=== PATIENT | female | born 1960 | race Caucasian/White ===

== ENCOUNTER 2023-11-27 06:00 | Outpatient (RCR) | payer OTHER, SELFPAY | END 2023-12-06 23:59 | disposition home or self-care (01) | LOC: GPT 06:00 | PROVIDERS: Visit Provider Nurse Practitioner | DX: M54.2 Cervicalgia (principal) | CPT/HCPCS: 97110; 97140; 97162 ==

== ENCOUNTER 2023-12-07 06:00 | Outpatient (RCR) | payer OTHER, SELFPAY | END 2024-01-05 23:59 | disposition home or self-care (01) | LOC: GPT 06:00 | PROVIDERS: Visit Provider Nurse Practitioner | DX: M54.2 Cervicalgia (principal) | CPT/HCPCS: 97110; 97140; 97530 ==

== ENCOUNTER 2024-01-06 06:00 | Outpatient (RCR) | payer OTHER, SELFPAY | END 2024-02-05 23:59 | disposition home or self-care (01) | LOC: GPT 06:00 | PROVIDERS: Visit Provider Nurse Practitioner | DX: M54.2 Cervicalgia (principal) | CPT/HCPCS: 97110; 97140 ==

== ENCOUNTER → 2024-02-04 09:30 | Outpatient (BNVA) | payer OTHER, SELFPAY | PROVIDERS: PCP Family Medicine; Visit Provider Family Medicine | DX: E87.6 Hypokalemia (principal); I50.9 Heart failure, unspecified; Z76.89 Persons encountering health services in other specified circumstances; G62.9 Polyneuropathy, unspecified | CPT/HCPCS: 80048 ==

== ENCOUNTER 2024-04-12 14:29 | Outpatient (CLI) | payer OTHER, SELFPAY ==
--- NOTE | 2024-04-12 15:00 | MM_ITS ---
WS: [id number] BILATERAL 3D TOMOSYNTHESIS DIGITAL SCREENING MAMMOGRAPHY WITH CAD CLINICAL INFORMATION: Screening HISTORY: Screening mammogram. No current complaints. COMPARISON: New baseline TECHNIQUE: Bilateral CC and MLO views. FINDINGS: Scattered fibroglandular densities bilaterally. Dense breast tissue upper outer quadrant LEFT breast. Recommend ultrasound upper outer LEFT breast. A few axillary lymph nodes with fatty monty. Unremarkab le RIGHT breast. MM/[place] [id number] IMPRESSION: BI-RADS: 0-Incomplete: Need additional imaging evaluation FOLLOW UP: Need Additional Imaging Recommend ultrasound upper outer LEFT breast.
== END 2024-04-12 14:30 | disposition home or self-care (01) ==
LOC: RAD 14:30
PROVIDERS: PCP Family Medicine; Visit Provider Family Medicine
DX: Z12.31 Encounter for screening mammogram for malignant neoplasm of breast (principal); R92.323 Mammographic fibroglandular density, bilateral breasts
CPT/HCPCS: 77063; 77067

== ENCOUNTER 2024-04-26 16:29 | Emergency (ER) | payer OTHER, SELFPAY ==
--- NOTE | 2024-04-26 16:34 | USR_ITS ---
PROCEDURE INFORMATION: Exam: US Duplex Right Lower Extremity Veins, Limited Exam date and time: 04/26/2024 4:42 PM Age: 63 years old Clinical indication: Pain; Leg, lower; Right; Additional info: Leg pain TECHNIQUE: Imaging protocol: Real-time duplex ultrasound of the right extremity with 2-D bhatt scale, color Doppler flow and spectral waveform analysis including responses to compression and other maneuvers (when performed) with image documentation. Limited exam was focused on the right lower extremity veins. COMPARISON: No relevant prior studies available. FINDINGS: Right deep veins: The common femoral, femoral, proximal profunda femoral and popliteal veins are patent without evidence of thrombus and demonstrate normal waveforms. Visualized deep calf veins are patent. Superficial veins: Saphenofemoral junction is patent without thrombus. No evidence of thrombophlebitis. Soft tissues: No evidence of fluid collection. US/[place] [id number] IMPRESSION: 1. No sonographic evidence of deep venous thrombosis in the right lower extremity.
[2024-04-26 16:45] VITALS: BP 128/74; PULSE 74; RESP 16; TEMP 36.7; O2SAT 96; BMI 33.0
--- NOTE | 2024-04-26 16:57 | XRR_ITS ---
PROCEDURE INFORMATION: Exam: XR Right Tibia and Fibula Exam date and time: 04/26/2024 5:10 PM Age: 63 years old Clinical indication: Swelling, leg or foot; Patient HX: Rle swelling no trauma; Additional info: Injury TECHNIQUE: Imaging protocol: Radiologic exam of the right tibia and fibula. Views: 2 views. COMPARISON: [place] [id number] 04/26/2024 4:42 PM FINDINGS: Bones/joints: Moderate medial femorotibial osteoarthritis. No evidence of acute fracture or subluxation. Tibia and fibula are intact. Soft tissues: There is soft tissue edema. No radiopaque foreign body. There are superficial venous varicosities laterally. XR/XR tibia fibula RT 2V [id number] IMPRESSION: 1. Tibia and fibula are intact. If there is concern for muscle or tendon pathology, follow-up outpatient MRI may be helpful.
--- NOTE | 2024-04-26 17:00 | W.ED.EXTPRO ---
HPI - Extremity Problem General: Chief complaint: Extremity Injury, Lower Stated complaint: [facility] sent-possible blood clot in r-leg Time Seen by Provider: 04/26/24 16:35 Source: patient Mode of arrival: ambulatory Limitations: no limitations History of Present Illness: 63-year-old female states she been having right calf pain and over the last day states her calf feels swollen is worse with palpation and movement. She denies any injuries denies any fever she has had no redness. She had seen her PCP today who had sent her here to rule out a DVT. Associated symptoms: Deny chest pain, fever(s) or rash Related Data Home Medications Medication Instructions Recorded Confirmed ergocalciferol (vitamin D2) 50,000 unit PO .once weekly 02/04/24 04/26/24 unit tablet Previous Rx's Medication Instructions Recorded furosemide 20 mg tablet 40 mg (2 x 20 mg) PO BID #60 tabs 02/04/24 potassium chloride 20 mEq 20 meq PO BID #60 tabs 02/04/24 tablet,extended release(part/cryst) (Klor-Con M) gabapentin 300 mg capsule 300 mg PO DAILY #90 caps 03/08/24 naproxen 500 mg tablet (Naprosyn) 500 mg PO BID PRN pain #20 tabs 04/26/24 Allergies Allergy/AdvReac Type Severity Reaction Status Date / Time No Known Allergies Allergy Unverified 02/04/24 08:29 Review of Systems Const: Denies: fever(s), chills, body aches or change in appetite ENMT: Denies: throat pain or dental pain Card: Denies: chest pain Resp: Denies: dyspnea GI: Denies: abdominal pain, nausea, vomiting or diarrhea Musc: Reports: extremity pain; Denies: neck pain or back pain Skin/Breast: Denies: rash Neuro: Denies: headache(s) PFSH ED PFSH: Family History Father Stroke Other Heart disease Social History Smoking and tobacco/nicotine status: never used tobacco/nicotine Second hand smoke exposure: Yes Alcohol intake: never Substance/Drug Use: never Adopted: No Caregiver/support person: No Lives independently: Yes Household members: spouse Female Reproductive History: Spontaneous abortions: No Physical Exam Const: COMMON NORMALS: no acute distress, patient oriented x3 and healthy appearing HENMT: COMMON NORMALS: normocephalic and atraumatic HEAD & SCALP: normocephalic and atraumatic Neck/C-Spine: COMMON NORMALS: full ROM and supple Chest: COMMONS NORMALS: normal inspection of the chest Resp: COMMON NORMALS: normal respiratory effort Cardio: COMMON NORMALS: regular rate, regular rhythm and No murmurs present (Cardio) RATE: regular rate RHYTHM: regular rhythm Extremity: COMMON NORMALS: normal to inspection and full ROM NARRATIVE EXTREMITY EXAM: No erythema noted distal pulses are palpable she has some tenderness of her calf with no obvious deformities compartments are soft Neuro: COMMON NORMALS: patient oriented x3, moves all extremities and no focal motor deficits Psych: COMMON NORMALS: mental status grossly normal, Normal thought process present and cooperative THOUGHT PROCESS: Normal thought process present Skin: COMMON NORMALS: no rashes or lesions noted and no wounds GENERAL SKIN EXAM: no rashes or lesions noted Course Vital Signs: Vital signs: Vital Signs Temperature 98.0 F 04/26/24 16:45 Pulse Rate 74 04/26/24 16:45 Respiratory Rate 16 04/26/24 16:45 Blood Pressure 128/74 04/26/24 16:45 Pulse Oximetry 96 04/26/24 16:45 Oxygen Delivery Me thod Room Air 04/26/24 16:45 MDM - Extremity (Nontraumatic) Medical Decision Making Patient presents for leg pain is likely muscular in origin he has a distal pulses intact no sign of ischemia no signs of any infection x-ray ultrasound normal she stable for discharge follow-up with PCP return if worsening Medical Records I reviewed the patient's medical records. Lab Data Radiology Impressions Venous Duplex 04/26/24 16:34 IMPRESSION: 1. No sonographic evidence of deep venous thrombosis in the right lower extremity. Tibia/Fibula X-Ray 04/26/24 16:57 IMPRESSION: 1. Tibia and fibula are intact. If there is concern for muscle or tendon pathology, follow-up outpatient MRI may be helpful. All radiology interpretation(s) finalized by discharge Discharge Plan Discharge Patient Disposition: Home Clinical Impression: Leg pain, right Condition: Stable Prescriptions: New Naprosyn 500 mg tablet 500 mg PO BID PRN (Reason: pain) Qty: 20 0RF No Action ergocalciferol (vitamin D2) 50,000 unit tablet PO .once weekly furosemide 20 mg tablet 40 mg PO BID Qty: 60 5RF potassium chloride [Klor-Con M20] 20 mEq tablet,ER particles/crystals 20 meq PO BID Qty: 60 5RF gabapentin 300 mg capsule 300 mg PO DAILY Qty: 90 5RF Discharge Orders: Discharge ED (Routine); Ordered 04/26/24 Ordered By: Kimberly Nascimento Referrals: Zak Bustillo DO [Primary Care Provider] - 4-7 days Discharge Diet: Advance as tolerated Discharge Activity: Resume usual activity Patient Instructions: Leg Pain (ED) Coding 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
[2024-04-26] MEDS: HYDROcodone-acetaminophen 5-325 mg Tablet 1 TAB PO (17:12)
[2024-04-26 18:26] VITALS: PULSE 81; O2SAT 99
== END 2024-04-26 18:27 | disposition home or self-care (01) ==
PROVIDERS: Emergency Provider Emergency Medicine; PCP Family Medicine
DX: M79.604 Pain in right leg (principal)
CPT/HCPCS: 73590; 93971; 99284

== ENCOUNTER 2024-05-03 13:10 | Outpatient (CLI) | payer OTHER, SELFPAY ==
--- NOTE | 2024-05-03 14:45 | US_ITS ---
WS: [id number] ULTRASOUND BREAST LEFT TECHNIQUE: Ultrasound left breast focused area of concern. CLINICAL INFORMATION: abnormal mammo COMPARISON: Screening mammogram 04/12/2024 FINDINGS: Ultrasound LEFT breast at the 1 o'clock position 5 cm from the nipple. At the 1 o'clock position 5 cm from the nipple is a normal-appearing lymph node with persistent fatty hilum measuring 8 x 12 mm. This has a benign appearance. No other suspicious findings. US/US breast LT limited* [id number] IMPRESSION: BI-RADS 2 benign Recommend return to annual screening mammography.
== END 2024-05-03 13:11 | disposition home or self-care (01) ==
LOC: RAD 13:11
PROVIDERS: PCP Family Medicine; Visit Provider Family Medicine
DX: R92.8 Other abnormal and inconclusive findings on diagnostic imaging of breast (principal)
CPT/HCPCS: 76642

== ENCOUNTER → 2024-05-04 12:57 | Outpatient (BNVA) | payer OTHER, SELFPAY | PROVIDERS: PCP Family Medicine; Visit Provider Internal Medicine | DX: R07.9 Chest pain, unspecified (principal); R06.02 Shortness of breath; R00.2 Palpitations; I49.9 Cardiac arrhythmia, unspecified; R06.09 Other forms of dyspnea | CPT/HCPCS: 93005 ==

== ENCOUNTER 2024-06-10 06:01 | Outpatient (CLI) | payer OTHER, SELFPAY ==
--- NOTE | 2024-06-10 06:30 | USCV_ITS ---
Tracy Javed Age: 63 Gender: F : 1960 Exam Date: 06/10/2024 06:23 Ordering Phys: Tenzin Joshi M.D ([email or web address]) Technologist: Mark Anthony Duff Exam Location: [place] Indication: chest pain BP: 130 / 88 HR: 60 Rhythm: Sinus Technical Quality: Adequate MEASUREMENTS (Male / Female) Normal Values 2D ECHO LV Diastolic Diameter PLAX 4.9 cm 4.2 - 5.9 / 3.9 - 5.3 cm IVS Diastolic Thickness 0.7 cm 0.6 - 1.0 / 0.6 - 0.9 cm IVS Systolic Thickness 1.3 cm LVPW Diastolic Thickness 0.9 cm 0.6 - 1.0 / 0.6 - 0.9 cm LVPW Systolic Thickness 1.6 cm LVOT Diameter 2.0 cm LV Ejection Fraction 2D Teich 63.1 % LV Ejection Fraction MOD 4C 62.5 % LV Ejection Fraction MOD 2C 59.9 % LV Ejection Fraction 2C AL 60.5 % LA Diameter 3.3 cm RA Systolic Volume 4C AL 33.0 ml RA Systolic Volume 4C MOD 33.9 ml LA Sys Volume AL 55.7 cm cubed LA Sys Volume Index AL 29.1 cm cubed/m squared Aorta at Sinotubular Diameter 2.1 cm IVC Diameter 1.6 cm M-MODE LA Ao Ratio MM 1.3 AV Cusp Separation MM 1.5 cm DOPPLER AV Peak Velocity 120.0 cm/s LVOT Peak Velocity 93.0 cm/s AV Area Cont Eq vti 2.5 cm squared AV Area Cont Eq pk 2.5 cm squared MV Peak Velocity 360.3 cm/s MV Area PHT 5.9 cm squared Mitral E to A Ratio 1.2 TV Peak Velocity 324.0 cm/s TR Peak Velocity 335.0 cm/s TR Peak Gradient 44.9 mmHg TR Mean Velocity 251.0 cm/s TR Mean Gradient 27.0 mmHg TR Velocity Time Integral 84.7 cm PV Peak Velocity 79.3 cm/s RV Ejection Time 0.3 s FINDINGS Left Ventricle Normal left ventricular cavity size. Normal left ventricular systolic function. Left ventricular ejection fraction is estimated at 60 %. Grade II/IV diastolic dysfunction, moderately elevated filling pressures. Right Ventricle The right ventricle is normal in size and function. Right Atrium The right atrium is normal in size. Left Atrium Moderately increased left atrial size. Mitral Valve Thickened mitral valve. No mitral valve stenosis. Mild mitral valve regurgitation. Aortic Valve Structurally normal aortic valve without significant sclerosis or stenosis. There is no aortic regurgitation. Tricuspid Valve Trace tricuspid valve regurgitation. Pulmonic Valve Structurally normal pulmonic valve without significant stenosis. There is no pulmonic regurgitation. Pericardium Normal pericardium without effusion. Aorta Normal ascending aorta dimension. IVC The inferior vena cava appears normal. CONCLUSIONS Normal left ventricular cavity size. Normal left ventricular systolic function. Left ventricular ejection fraction is estimated at 60 %. Grade II/IV diastolic dysfunction, moderately elevated filling pressures. Moderately increased left atrial size. Thickened mitral valve. No mitral valve stenosis. Mild mitral valve regurgitation. There is no pericardial effusion. Right atrial pressure is around 5 mm of mercury. Kimani Reeves MD (Electronically Signed) Final Date: 11 June 2024 14:52 S
== END 2024-06-10 06:02 | disposition home or self-care (01) ==
LOC: RAD 06:02
PROVIDERS: PCP Family Medicine; Visit Provider Internal Medicine
DX: I50.30 Unspecified diastolic (congestive) heart failure (principal); I51.7 Cardiomegaly; I34.81 Nonrheumatic mitral (valve) annulus calcification
CPT/HCPCS: 93306

== ENCOUNTER → 2024-06-27 09:56 | Outpatient (BNVA) | payer OTHER, SELFPAY | PROVIDERS: PCP Family Medicine; Visit Provider Family Medicine | DX: R30.0 Dysuria (principal) | CPT/HCPCS: 80048; 81000 ==

== ENCOUNTER 2024-10-18 17:55 | Emergency (ER) | payer OTHER, SELFPAY ==
[2024-10-18 18:12] VITALS: BP 141/89; PULSE 82; TEMP 36.7; O2SAT 96; BMI 33.6
--- NOTE | 2024-10-18 18:27 | USR_ITS ---
PROCEDURE INFORMATION: Exam: US Duplex Right Lower Extremity Veins, Limited Exam date and time: 10/18/2024 6:44 PM Age: 63 years old Clinical indication: Edema, localized; Lower extremity, right; Additional info: Leg swelling TECHNIQUE: Imaging protocol: Real-time duplex ultrasound of the right extremity with 2-D bhatt scale, color Doppler flow and spectral waveform analysis including responses to compression and other maneuvers (when performed) with image documentation. Limited exam was focused on the right lower extremity veins. COMPARISON: CR XR tibia fibula RT 2V [id number] 04/26/2024 5:10 PM FINDINGS: Right deep veins: Unremarkable. The common femoral, femoral, proximal profunda femoral and popliteal veins are patent without thrombus. Normal Doppler waveforms. Normal compressibility and/or augmentation response. Superficial veins: Greater saphenous vein at the saphenofemoral junction is patent without thrombus. Soft tissues: Unremarkable. US/[place] [id number] IMPRESSION: No evidence of deep vein thrombosis.
--- NOTE | 2024-10-18 20:55 | W.ED.EXTPRO ---
HPI - Extremity Problem General: Chief complaint: Extremity Problem,Nontraumatic Stated complaint: right leg swollen Time Seen by Provider: 10/18/24 19:47 Source: patient Mode of arrival: ambulatory Limitations: no limitations History of Present Illness: Patient is a 63-year-old female who presents the emergency department complaining of right lower extremity pain for the past few days. She states this is atraumatic, began suddenly and it radiates originating from the right knee up the posterior right leg towards her back. She does report a history of arthritis, states this does not feel similar. She also is currently on a blood thinner. She does not wear compression stockings, states that she took naproxen for the pain but this was causing nosebleeds so she stopped. She has still been able to walk, states this causes pain. She notes that her right knee has been swelling as well. She denies any fever, chest pain, shortness of breath, nausea/vomiting/diarrhea, or other systemic signs of illness at this time. Denies any calf swelling or calf tenderness. Denies history of sciatica. MD Complaint: extremity pain Onset (ago): day(s) (3) Pain Consistency: constant Location: right and lower extremity Radiation: proximal Exacerbating factors: range of motion and weight bearing Associated symptoms: Deny chest pain, fever(s) or rash Related Data Previous Rx's ?Medication ?Instructions ?Recorded gabapentin 100 mg capsule See Rx Instructions .Route 05/31/24 .COMPLEX #90 caps metoprolol succinate 25 mg 25 mg PO DAILY #90 tabs 08/17/24 tablet,extended release 24 hr rivaroxaban 20 mg tablet (Xarelto) 20 mg PO DAILY #90 tabs 08/17/24 furosemide 20 mg tablet See Rx Instructions .Route 09/02/24 .COMPLEX #60 tabs potassium chloride 20 mEq See Rx Instructions .Route 09/02/24 tablet,extended release(part/cryst) .COMPLEX #60 tabs naproxen 500 mg tablet See Rx Instructions .Route 09/30/24 .COMPLEX #60 tabs ergocalciferol (vitamin D2) 1,250 1,250 mcg PO .weekly #20 caps 10/03/24 mcg (50,000 unit) capsule Allergies Allergy/AdvReac Type Severity Reaction Status Date / Time latex Allergy Unknown Verified 10/18/24 18:17 Review of Systems General: Reports: 10 or more systems reviewed and unremarkable except in HPI and below Const: Denies: fever(s) or chills Card: Denies: chest pain Resp: Denies: dyspnea or productive cough GI: Denies: abdominal pain, nausea, vomiting or diarrhea : Denies: flank pain Musc: Reports: back pain, extremity pain, joint pain and joint swelling; Denies: neck pain, extremity swelling, joint redness, joint warmth, limited range of motion or muscle weakness Skin/Breast: Denies: rash Neuro: Denies: headache(s), numbness in extremities or weakness in extremities PFSH ED PFSH: Medical History Hyperlipemia Heart murmur Family History Father Stroke CAD (coronary artery disease) Mother CAD (coronary artery disease) Other Heart disease Social History Smoking and tobacco/nicotine status: never used tobacco/nicotine Second hand smoke exposure: Yes Alcohol intake: never Substance/Drug Use: never Adopted: No Caregiver/support person: No Lives independently: Yes Household members: spouse Female Reproductive History: Spontaneous abortions: No Physical Exam Const: COMMON NORMALS: no acute distress, patient oriented x3, no limitations, healthy appearing, alert and well nourished HENMT: COMMON NORMALS: normocephalic and atraumatic HEAD & SCALP: normocephalic and atraumatic Neck/C-Spine: COMMON NORMALS: full ROM, supple and no meningeal signs Resp: COMMON NORMALS: normal respiratory effort, No use of accessory muscles and clear to auscultation bilaterally AUSCULTATION: clear to auscultation bilaterally Cardio: COMMON NORMALS: regular rate and regular rhythm RATE: regular rate RHYTHM: regular rhythm HEART SOUNDS: Murmur heart sound present Extremity: COMMON NORMALS: full ROM, capillary refill normal, no joint enlargement and no clubbing, cyanosis or edema NARRATIVE EXTREMITY EXAM: There are numerous varicosities to bilateral lower extremity. DP/PT pulses are 2+ bilaterally. No calf tenderness, redness, or swelling. Right knee joints are symmetrical, there is no obvious swelling to the right knee. Tenderness to palpation to the right popliteal space without palpable cord, this is reproducible up the posterior aspect of the right leg towards the back. She does endorse back pain with right straight leg raise. Neuro: COMMON NORMALS: patient oriented x3, moves all extremities, no focal motor deficits and no sensory deficits noted SENSORIUM/ORIENTATION: Yes alert MENINGEAL SIGNS: Yes no meningeal signs Skin: COMMON NORMALS: no rashes or lesions noted GENERAL SKIN EXAM: no rashes or lesions noted Course Vital Signs: Vital signs: Vital Signs Temperature 98.0 F 10/18/24 18:12 Pulse Rate 82 10/18/24 18:12 Blood Pressure 141/89 10/18/24 18:12 Pulse Oximetry 96 10/18/24 18:12 Oxygen Delivery Me thod Room Air 10/18/24 18:12 MDM - Extremity (Nontraumatic) Medical Decision Making Patient DVT negative here, she has had atraumatic pain for the past few days and is on a blood thinner currently. She does not report a history of sciatica, though this remains my differential along with arthritis of the right knee, IT band syndrome, or superficial thrombophlebitis. Informed her to start wearing compression stockings, she cannot take ibuprofen or NSAIDs due to the blood thinner and increase in bleeding so encouraged her to do Tylenol. Encouraged her to follow-up closely with primary care for reevaluation and to make sure that she is getting better after rest and recovery. She does not have any systemic signs of illness and knee did not appear to be septic in any way, and informed her to return with any worsening whatsoever. She verbalized understanding, discharge at this time. Lab Data Radiology Impressions Venous Duplex 10/18/24 18:27 IMPRESSION: No evidence of deep vein thrombosis. All radiology interpretation(s) finalized by discharge Discharge Plan Discharge Patient Disposition: Home Clinical Impression: Superficial thrombophlebitis Condition: Stable Prescriptions: No Action Xarelto 20 mg tablet 20 mg PO DAILY Qty: 90 3RF Rx Instructions: must administer with evening meal metoprolol succinate 25 mg tablet extended release 24 hr 25 mg PO DAILY Qty: 90 3RF gabapentin 100 mg capsule See Rx Instructions .ROUTE .COMPLEX Qty: 90 0RF Dose Instruction: TAKE ONE CAPSULE BY MOUTH ONCE DAILY AT BEDTIME FOR FOUR DAYS THEN INCREASE TO TWO CAPSULES AT BEDTIME FOR FOUR DAYS THEN TAKE THREE CAPSULES ONCE DAILY AT BEDTIME Rx Instructions: TAKE ONE CAPSULE BY MOUTH ONCE DAILY AT BEDTIME FOR FOUR DAYS THEN INCREASE TO TWO CAPSULES AT BEDTIME FOR FOUR DAYS THEN TAKE THREE CAPSULES ONCE DAILY AT BEDTIME potassium chloride 20 mEq tablet,ER particles/crystals See Rx Instructions .ROUTE .COMPLEX Qty: 60 5RF Dose Instruction: TAKE ONE TABLET BY MOUTH TWICE DAILY Rx Instructions: TAKE ONE TABLET BY MOUTH TWICE DAILY furosemide 20 mg tablet See Rx Instructions .ROUTE .COMPLEX Qty: 60 5RF Dose Instruction: TAKE TWO TABLETS BY MOUTH TWICE DAILY Rx Instructions: TAKE TWO TABLETS BY MOUTH TWICE DAILY naproxen 500 mg tablet See Rx Instructions .ROUTE .COMPLEX Qty: 60 2RF Dose Instruction: TAKE ONE TABLET BY MOUTH TWICE DAILY NEEDED FOR PAIN Rx Instructions: TAKE ONE TABLET BY MOUTH TWICE DAILY NEEDED FOR PAIN ergocalciferol (vitamin D2) 1,250 mcg (50,000 unit) capsule 1,250 mcg PO .weekly Qty: 20 0RF Discharge Orders: Discharge ED (Routine); Ordered 10/18/24 Ordered By: Salazar Penny Referrals: Zak Bustillo DO [Primary Care Provider] - Patient Instructions: Superficial Thrombophlebitis (ED) Activity Restrictions/Additional Instructions: Compression stockings. Take Tylenol for pain. Elevate the extremity, rest and recovery. Please follow-up closely with primary care for further evaluation. Please return with any fever, chest pain or shortness of breath, or other systemic signs of illness. 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
[2024-10-18 21:10] VITALS: BP 146/82; PULSE 79; O2SAT 95
== END 2024-10-18 21:12 | disposition home or self-care (01) ==
PROVIDERS: Emergency Provider Physician Assistant; PCP Family Medicine
DX: I80.01 Phlebitis and thrombophlebitis of superficial vessels of right lower extremity (principal); E78.5 Hyperlipidemia, unspecified
CPT/HCPCS: 93971; 99284

== ENCOUNTER → 2024-10-31 08:30 | Outpatient (BNVA) | payer OTHER, SELFPAY | PROVIDERS: PCP Family Medicine; Visit Provider Family Medicine | DX: R79.89 Other specified abnormal findings of blood chemistry (principal); I50.9 Heart failure, unspecified; I48.4 Atypical atrial flutter; Z79.01 Long term (current) use of anticoagulants; E87.6 Hypokalemia; R30.0 Dysuria; E55.9 Vitamin D deficiency, unspecified | CPT/HCPCS: 80053; 81000; 82306; 82607; 82728; 83550; 84443; 85025; 87086 ==

== ENCOUNTER → 2025-01-04 08:50 | Outpatient (BNVA) | payer OTHER, SELFPAY | PROVIDERS: PCP Family Medicine; Visit Provider Family Medicine | DX: E55.9 Vitamin D deficiency, unspecified (principal); E11.9 Type 2 diabetes mellitus without complications; I50.9 Heart failure, unspecified; Z79.01 Long term (current) use of anticoagulants; R79.89 Other specified abnormal findings of blood chemistry; E87.6 Hypokalemia | CPT/HCPCS: 80048; 80061; 82306; 82607; 83036; 84443; 85025 ==

== ENCOUNTER 2025-02-07 09:06 | Day surgery (SDC) | payer OTHER, SELFPAY ==
[2025-02-07 09:45] VITALS: BP 128/77; PULSE 75; RESP 18; TEMP 36.1; O2SAT 91
[2025-02-07] MEDS: sodium chloride 0.9% 1,000 ML 15 ML IV (09:49)
--- NOTE | 2025-02-07 11:05 | ANES.PREANE2 ---
Pre-Anesthetic Assessment Height/Weight: Height 1.57 m Weight 86.183 kg Temp Pulse Resp BP Pulse Ox O2 Del Method 97.0 F L 75 18 128/77 91 Room Air 02/07/25 09:45 02/07/25 09:45 02/07/25 09:45 02/07/25 09:45 02/07/25 09:45 02/07/25 09:45 Preop Diagnosis: screening Operation Date: 02/07/25 11:30 Proposed Procedures p Colonoscopy 53618 G0121 Z12.11(Not Applicable) - Darion Reyes MD Familial anesthetic complications: none Was Beta Huy taken within 24 hours: N/A Was Clonidine taken within 24 hours: N/A Last intake: Intake Last Liquid Date 02/06/25 Last Liquid Time 23:00 Last Solid Date 02/05/25 Last Solid Time 12:00 Last Intake: 23:00 Social No alcohol and No tobacco Exam alert and oriented x 3 Airway Submandibular: within normal limits Cervical ROM: within normal limits Mallampati: Class II Dentition: false History/ROS No significant history except as noted Pulmonary None reported CV/HEM Atrial Fibrillation and Congestive Heart Failure None reported Hepatic None reported GI None reported Metabolic Diabetes Mellitus Musc/skel Osteoarthritis/DJD Neuropsych None reported Anesthetic Plan ASA status: 3 Anesthesia: Anesthesia Evaluation and MAC Risk of > 500 ml blood loss (7ml/kg in children): No Medications/Allergies Home Medications ?Medication ?Instructions ?Recorded ?Confirmed ?Last Taken ?Type metoprolol succinate 25 mg 25 mg PO DAILY #90 tabs 08/17/24 02/02/25 02/06/25 Rx tablet,extended release 24 hr rivaroxaban 20 mg tablet (Xarelto) 20 mg PO DAILY #90 tabs 08/17/24 02/02/25 02/02/25 Rx ergocalciferol (vitamin D2) 1,250 1,250 mcg PO .weekly #20 caps 10/03/24 02/02/25 02/06/25 Rx mcg (50,000 unit) capsule gabapentin 100 mg capsule 100 mg PO DAILY #90 caps 10/31/24 02/02/25 02/06/25 Rx furosemide 20 mg tablet 20 mg PO BID 02/02/25 02/02/25 02/06/25 History potassium chloride 20 mEq 20 meq PO BID 02/02/25 02/02/25 02/06/25 History tablet,extended release(part/cryst) Allergies Allergy/AdvReac Type Severity Reaction Status Date / Time latex Allergy Unknown Verified 02/02/25 08:40 Current Medications Generic Name Dose Route Start Last Admin Trade Name Freq PRN Reason Stop Dose Admin Sodium Chloride 1,000 mls @ 15 mls/hr 02/07/25 09:17 02/07/25 09:49 Sodium Chloride 0.9% IV 02/08/25 09:16 15 mls/hr .Q24H PRN Administration COLONOSCOPY FLUIDS PFSH Anesthesia Medical History Hyperlipemia Heart murmur Family History Father Stroke CAD (coronary artery disease) Mother CAD (coronary artery disease) Other Heart disease Social History Smoking and tobacco/nicotine status: never used tobacco/nicotine Second hand smoke exposure: Yes Alcohol intake: never Substance/Drug Use: never Adopted: No Caregiver/support person: No Lives independently: Yes Household members: spouse Female Reproductive History Spontaneous abortions: No Data Anesthesia Cardiac Studies: Echocardiogram 06/10/24 Cardiac Event Monitor 05/04/24
--- NOTE | 2025-02-07 11:15 | W.PM.OPSUD ---
Surgery/Procedure H&P Update DATE OF PROCEDURE: February 07, 2025 DATE H&P PERFORMED: 01/12/25 H&P UPDATE INFORMATION: I have reviewed H&P completed within last 30 days, I have examined patient prior to procedure and No changes to prior documentation PREOP DIAGNOSIS: screening PLANNED PROCEDURE: Operation Date: 02/07/25 11:30 Proposed Procedures p Colonoscopy [id number] G0121 Z12.11(Not Applicable) - Darion Reyes MD
[2025-02-07 11:38] VITALS: BP 113/69; PULSE 64; RESP 18; TEMP 36.3; O2SAT 93
[2025-02-07 11:57] VITALS: BP 120/66; PULSE 65; RESP 16; O2SAT 95
--- NOTE | 2025-02-07 12:04 | ANE.PACU2 ---
Inpatient post-anesthesia follow up: Airway intact: Yes Vital signs: Temperature 97.3 F Pulse Rate 65 Respiratory Rate 16 Blood Pressure 120/66 Pulse Oximetry 95 Oxygen Delivery Me thod Room Air Oxygen Flow Rate Fraction of Inspir ed Oxygen Hydration adequate: Yes Nausea and vomiting: No Pain level: 1 Mental status: Baseline
== END 2025-02-07 12:04 | disposition home or self-care (01) ==
PROVIDERS: PCP Family Medicine; Visit Provider Student in an Organized Health Care Education/Training Program
PROC: 0DJD8ZZ Inspection of Lower Intestinal Tract, Via Natural or Artificial Opening Endoscopic (ICD-10-PCS; CPT 45378; principal; 2025-02-07 11:30)
DX: Z12.11 Encounter for screening for malignant neoplasm of colon (principal); K57.30 Diverticulosis of large intestine without perforation or abscess without bleeding; I48.91 Unspecified atrial fibrillation; I50.9 Heart failure, unspecified; E11.9 Type 2 diabetes mellitus without complications; Z79.899 Other long term (current) drug therapy; Z91.040 Latex allergy status
CPT/HCPCS: 45378; J2704; J7030

== ENCOUNTER 2025-05-23 09:33 | Outpatient (CLI) | payer OTHER, SELFPAY ==
--- NOTE | 2025-05-23 09:30 | MM_ITS ---
WS: [id number] BILATERAL 3D TOMOSYNTHESIS DIGITAL SCREENING MAMMOGRAPHY WITH CAD CLINICAL INFORMATION: SCREENING HISTORY: Screening mammogram. No current complaints. COMPARISON: 2023 TECHNIQUE: Bilateral CC and MLO views. FINDINGS: The breasts are composed of heterogeneous fibroglandular density tissue, which can limit the detection of small underlying mass lesions. No suspicious mass, asymmetry, calcifications, or architectural distortion. No evidence of malignancy. MM/MM scr tomosynthesis [id number] IMPRESSION: DENSITY: The breasts are heterogeneously dense, which may obscure small masses. BI-RADS: 1 - Negative FOLLOW UP: 1 Year Follow-up Recommend return to annual screening mammography.
== END 2025-05-23 09:34 | disposition home or self-care (01) ==
LOC: MOBLMAM 09:34
PROVIDERS: PCP Family Medicine; Visit Provider Family Medicine
DX: Z12.31 Encounter for screening mammogram for malignant neoplasm of breast (principal); R92.333 Mammographic heterogeneous density, bilateral breasts; R92.323 Mammographic fibroglandular density, bilateral breasts
CPT/HCPCS: 77063; 77067